=== PATIENT | female | born 1950 | race Caucasian/White ===

== ENCOUNTER → 2020-12-29 | Outpatient (REF) | payer MEDICARE, OTHER ==
[2020-12-29 12:57] LABS: BASO % 0.6 % (0.0-1.0); EOS # 0.2 10^3/uL (0.0-0.5); EOS % 4.7 % (0.0-3.0); HEMATOCRIT 48.1 % (36.0-47.0); HEMOGLOBIN 15.4 g/dl (12.0-15.5); LYMPH # 1.9 10^3/uL (1.5-5.0); LYMPH % 39.3 % (24.0-44.0); MEAN CORPUSCULAR HEMOGLOBIN 29.7 pg (27.0-33.0); MEAN CORPUSCULAR VOLUME 92.7 fl (80.0-96.0); MONO # 0.5 10^3/uL (0.0-0.8); NEUTROPHILS # 2.2 10^3/uL (1.5-8.5); NEUTROPHILS % 45.2 % (36.0-66.0); PLATELET COUNT, AUTOMATED 273 10^3/uL (150-450); RED BLOOD COUNT 5.19 10^6/uL (4.00-5.40); WHITE BLOOD COUNT 4.9 10^3/uL (4.0-10.0)
[2020-12-29 13:33] LABS: ALBUMIN 3.8 GM/DL (3.2-5.2); ALT/SGPT 27 U/L (12-78); BILIRUBIN,TOTAL 0.5 MG/DL (0.2-1.0); BLOOD UREA NITROGEN 17 MG/DL (7-18); CALCIUM LEVEL 10.8 MG/DL (8.8-10.2); CARBON DIOXIDE LEVEL 29 MEQ/L (21-32); CHLORIDE LEVEL 107 MEQ/L (98-107); CHOLESTEROL LEVEL 266 MG/DL (<200); CHOLESTEROL RISK RATIO 3.454 (<5); CREATININE FOR GFR 0.93 MG/DL (0.55-1.30); FREE T4 1.09 NG/DL (0.76-1.46); GLOMERULAR FILTRATION RATE > 60.0 (>45); GLUCOSE, FASTING 91 MG/DL (70-100); HDL CHOLESTEROL 77 MG/DL (>40); LDL CHOLESTEROL 166 MG/DL (<100); NON-HDL-C 189 MG/DL; POTASSIUM SERUM 5.1 MEQ/L (3.5-5.1); SODIUM LEVEL 140 MEQ/L (136-145); TOTAL PROTEIN 7.4 GM/DL (6.4-8.2); TRIGLYCERIDES LEVEL 114 MG/DL (<150)
== END ==
LOC: M SFHCADAM 09:11
PROVIDERS: ATTEND Family Medicine
DX: Z00.00 Encounter for general adult medical examination without abnormal findings (principal); E04.9 Nontoxic goiter, unspecified; Z79.899 Other long term (current) drug therapy

== ENCOUNTER → 2021-01-05 | Outpatient (CLI) | payer MEDICARE, BC, OTHER ==
--- NOTE | 2021-01-05 10:29 | REP ---
INDICATION: BREAST CANCER SCREENING. COMPARISON: None TECHNIQUE: Digital screening mammography was carried out bilaterally in the CC and MLO projections using both 2D and 3D modalities. All prior examinations have been destroyed. By history, the patient has no complaints of a palpable breast abnormality or other significant breast complaints. FINDINGS: The breasts are symmetric in size and shape. Scattered dense heterogenous fibroglandular elements are seen bilaterally. Benign-appearing calcifications are seen bilaterally. In the right breast outer aspect seen only on the CC view there is a potential asymmetric density. This cannot be confirmed on the MLO view. No other suspicious features are seen in either breast. The Volpara volumetric breast density pattern is b. IMPRESSION: BIRADS/ACR category 0 mammogram. Potential asymmetric density seen in the outer aspect of the right breast on the CC view only and for which diagnostic digital DBT spot compression views are recommended along with ultrasonography if necessary. This patient's Tyrer-Cuzick lifetime breast cancer risk assessment score is 6.9%. This mammogram was interpreted with the aid of an FDA-approved computer-aided detection system. The patient states she had a clinical breast exam in over a year. The patient letter being requested is M0. RECOMMENDATION: As above <Electronically signed by Carlos Tamayo > 01/05/21 [id number]
--- NOTE | 2021-01-05 11:56 | DEXAMM ---
INDICATION: SCREENING FOR OSTEOPOROSIS. COMPARISON: None. TECHNIQUE: Bone density was measured using dual-energy x-ray absorptiometry (DEXA). FINDINGS: AP SPINE L1-L4 BMD 1.098 g/cm2 Young Adult T-Score -0.8 Age Matched Z-Score 0.9. LT FEMUR, TOTAL BMD 0.866 g/cm2 Young Adult T-Score -1.1 Age Matched Z-Score 0.3. LT NECK BMD 0.669 g/cm2 Young Adult T-Score -2.7 Age Matched Z-Score -1.0. RT FEMUR, TOTAL BMD 0.876 g/cm2 Young Adult T-Score -1.0 Age Matched Z-Score 0.4. RT NECK BMD 0.720 g/cm2 Young Adult T-Score -2.3 Age Matched Z-Score -0.6. IMPRESSION: There is normal bone density of the spine. There is osteoporosis of the left hip. There is low bone density of the right hip. FOLLOW-UP: Recommendation for the next bone density exam: 2 years. <Electronically signed by Germain Zhao > 01/05/21 [id number]
== END ==
LOC: M WHC 08:06 → EDUNIT# 08:30
PROVIDERS: ATTEND Family Medicine
DX: Z12.31 Encounter for screening mammogram for malignant neoplasm of breast (principal); Z13.820 Encounter for screening for osteoporosis; M85.89 Other specified disorders of bone density and structure, multiple sites

== ENCOUNTER → 2021-01-08 | Outpatient (CLI) | payer MEDICARE, BC, OTHER ==
--- NOTE | 2021-01-08 14:26 | REP ---
INDICATION: THYROID ENLARGEMENT. COMPARISON: None. TECHNIQUE: Real-time sonographic evaluation of thyroid performed. FINDINGS: Right lobe of the thyroid is 6.2 x 1.7 x 1.6 cm, left lobe 5.7 x 1.5 x 1.5 cm. Echotexture is heterogeneous and there are multiple bilateral nodules. A nodule in the right mid aspect measures 8 x 11 x 5 mm. Three smaller solid nodules are seen in the right lower pole. Multiple subcentimeter nodules in the left lobe are noted, the largest are in the mid aspect measuring up to 9 mm in diameter. IMPRESSION: Prominent size of thyroid with heterogeneous nodular echotexture. Ill-defined solid appearing nodules are present, the largest is in the right mid aspect 11 mm in maximum diameter. Recommend follow-up ultrasound in 6 months. <Electronically signed by Germain Zhao > 01/08/21 [id number]
== END ==
LOC: M RAD 11:09
PROVIDERS: ATTEND Family Medicine
DX: E04.9 Nontoxic goiter, unspecified (principal)

== ENCOUNTER → 2021-01-30 | Outpatient (CLI) | payer MEDICARE, BC, OTHER ==
--- NOTE | 2021-01-30 13:45 | REP ---
INDICATION: RIGHT BREAST ADD VIEWS. COMPARISON: Screening mammogram, 01/05/2021. TECHNIQUE: 2D and 3D spot compression images of the right breast in the CC orientation were obtained. FINDINGS: The asymmetry, seen in the right breast, only on the CC view, on the recent screening mammogram, is shown to be normal breast tissue at additional view mammography. The Volpara volumetric breast density pattern is b, there are scattered areas of fibroglandular density.. IMPRESSION: BIRADS/ACR : Category 1: Negative. This mammogram was interpreted with the aid of an FDA-approved computer-aided detection system. The patient letter being requested is M1. RECOMMENDATION: Repeat screening mammography recommended 1 year (for women over 40). <Electronically signed by Marlo Weber > 01/30/21 [id number]
== END ==
LOC: M WHC 12:18
PROVIDERS: ATTEND Family Medicine
DX: R92.2 Inconclusive mammogram (principal)
CPT/HCPCS: 77065; G0279

== ENCOUNTER → 2021-03-08 | Outpatient (CLI) | payer MEDICARE, BC, OTHER | LOC: M RAD 14:40 | PROVIDERS: ATTEND Family Medicine | DX: Z12.2 Encounter for screening for malignant neoplasm of respiratory organs (principal); Z87.891 Personal history of nicotine dependence ==

== ENCOUNTER → 2021-10-04 | Outpatient (CLI) | payer MEDICARE, BC, OTHER | LOC: M ADAMS 14:53 | PROVIDERS: ATTEND Family Medicine | DX: R05.1 Acute cough (principal) ==